=== PATIENT | male | born 1985 | race Caucasian/White ===

== ENCOUNTER 2020-02-06 11:06 | Emergency (ER) | payer OTHER ==
[~2020-02-06] VITALS: Ht 180.3 cm; Wt 73.0 kg
[2020-02-06 11:40] LABS: BASOPHILS % 0.6 % (0.0-2.0); EOSINOPHILS % 1.7 % (0.0-5.0); HEMATOCRIT. 35.5 % (42.0-52.0); HEMOGLOBIN. 12.6 g/dL (14.0-18.0); LYMPHOCYTES % 25.4 % (20.0-50.0); MEAN CORPUSCULAR HEMOGLOBIN 33.6 pg (28.0-32.0); MEAN CORPUSCULAR VOLUME 94.6 fL (80.0-94.0); MEAN PLATELET VOLUME 6.5 fl (7.4-10.4); MONOCYTES % 8.8 % (2.0-8.0); NEUTROPHILS % 63.5 % (40.0-76.0); PLATELET 184 x1000/uL (130-400); RED BLOOD CELL COUNT 3.76 mill/uL (4.7-6.1)
[2020-02-06 11:47] LABS: CHLORIDE 106 mEq/L (98-107)
[2020-02-06 11:51] LABS: ETHANOL BLOOD 21 mg/dL
[2020-02-06 15:21] LABS: *AMPHETAMINES SCREEN URINE PRESUMTIVE POSITIVE (NEGATIVE); *BARBITURATES SCREEN URINE NEGATIVE (NEGATIVE); *BENZODIAZEPINES SCREEN URINE PRESUMTIVE POSITIVE (NEGATIVE); *COCAINE SCREEN URINE NEGATIVE (NEGATIVE); METHADONE URINE SCREEN NEGATIVE (NEGATIVE); OPIATES URINE SCREEN NEGATIVE (NEGATIVE); PHENCYCLIDINE URINE SCREEN NEGATIVE (NEGATIVE)
[2020-02-06 15:22] LABS: CANNABINOID URINE SCREEN PRESUMTIVE POSITIVE (NEGATIVE)
[2020-02-06] MEDS ORDERED: IBUPROFEN 600MG TABLET PO ONE (15:30)
[2020-02-06 16:30] VITALS: BP 126/82
== END 2020-02-06 16:30 | disposition home or self-care (01) ==
LOC: ER 11:06
DX: M79.18 Myalgia, other site (principal); T43.621A Poisoning by amphetamines, accidental (unintentional), initial encounter; R42 Dizziness and giddiness; Y92.89 Other specified places as the place of occurrence of the external cause; R03.0 Elevated blood-pressure reading, without diagnosis of hypertension; F15.188 Other stimulant abuse with other stimulant-induced disorder
CPT/HCPCS: 36415; 71045; 80053; 80305; 80320; 83880; 84484; 85025; 93005; 99285; G0480

== ENCOUNTER 2021-10-17 22:42 | Emergency (ER) | payer MEDICAID ==
[~2021-10-17] VITALS: Ht 175.3 cm; Wt 78.0 kg
[2021-10-18 01:50] VITALS: BP 110/62
== END 2021-10-18 02:28 | disposition home or self-care (01) ==
LOC: ER 22:42
DX: F10.129 Alcohol abuse with intoxication, unspecified (principal); F12.10 Cannabis abuse, uncomplicated; G40.909 Epilepsy, unspecified, not intractable, without status epilepticus; Y90.9 Presence of alcohol in blood, level not specified
CPT/HCPCS: 99283

== ENCOUNTER 2022-01-11 07:08 | Emergency (ER) | payer MEDICAID ==
[~2022-01-11] VITALS: Ht 175.3 cm; Wt 82.0 kg
[2022-01-11 07:11] VITALS: BP 145/66
== END 2022-01-11 07:36 | disposition left against medical advice (07) ==
LOC: ER 07:08
DX: R42 Dizziness and giddiness (principal)
CPT/HCPCS: 99283